=== PATIENT | male | born 1990 | race American Indian/Alaskan Native ===

== ENCOUNTER 2018-11-07 09:44 | Outpatient (CLI) | payer OTHER ==
--- NOTE | 2018-11-07 14:26 | Magnetic Resonance Report ---
MRI RIGHT SHOULDER WITHOUT CONTRAST INDICATION / CLINICAL INFORMATION: Right shoulder pain. TECHNIQUE: Multiplanar, multisequence MR images were obtained. COMPARISON: None available. FINDINGS: There is mild acromioclavicular degenerative change with very mild encroachment. No subdeltoid/subacr omial fluid is seen. There is abnormal concavity along the superior humeral head several punctate ossific densities adjace nt to it (coronal T1 image 9). There is moderate to advanced minimal degenerative change, evidenced b y osteophyte formation and advanced near full-thickness cartilage loss along both sides of the joint. There is marked hypoplasia/dysplasia of the glenoid. There is absence of the anterior half of the gle noid labrum. Posterior labrum appears intact. There is longitudinal split tear of the proximal long head biceps tendon. Mild biceps tenosynovitis i s noted. There is a joint effusion with debris in the subcoracoid bursa and within the joint space. There is high-grade articular surface tear through the distal supraspinatus tendon at the attachment to the greater tuberosity, a few superficial/bursal fibers remain intact (seen best on coronal T2 benitez ge 11). There is no significant bursitis tendon retraction and no atrophy. The rotator cuff is otherw ise unremarkable. IMPRESSION: 1. 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 Joint effusion is noted with synovitis. There are also small intra-articular bodies which may be chondral in etiology. 2. Large osteochondral lesion along the superior humeral head with fragmented osteochondral bodies in the adjacent joint space deep to the distal rotator cuff. 3. High-grade articular surface tear through the distal supraspinatus tendon at the attachment to the greater tuberosity (rim rent tear). 4. Longitudinal split tear of the proximal long head biceps tendon with associated tenosynovitis. MRI LEFT SHOULDER WITHOUT CONTRAST INDICATION / CLINICAL INFORMATION: Left shoulder pain. TECHNIQUE: Multiplanar, multisequence MR images were obtained. COMPARISON: None available. FINDINGS: There is no significant acromioclavicular degenerative change. The acromion is somewhat low-lying. Th ere is trace fluid in the subdeltoid/subacromial bursa. Similar to the contralateral right side, there is advanced glenohumeral osteoarthrosis. There is adva nced full-thickness near-complete cartilage loss along both sides of the joint. There is marked dysplasia/hypoplasia of the glenoid. There is a large irregular ossific density which measures 3.2 x 1.2 cm on axial image 10 in the anterior joint space with resorptive change along the underlying anterior humeral head. There is also concavity along the superior humeral head with minim al ossific densities adjacent to it. No rotator cuff tear is seen. There is no significant tendinosis. There is tendinosis of the intra-articular portion of the long head biceps tendon. There is a small joint effusion with extensive synovitis and debris in the joint. IMPRESSION: 1. There is no significant deformity of the humeral head areas of volume loss/concavity anteriorly an d superiorly. Bulky 3.2 cm ossific density in the anterior joint space appears to be an unstable oste ochondral fragment. This could conceivably be an osteophyte; however, I do not see bony continuity wi th the underlying humeral head. There is also a chronic osteochondral lesion along the superior humer al head with fragmented osteochondral bodies along the concavity. 2. Advanced glenohumeral osteoarthrosis with full-thickness near-complete cartilage loss. 3. Advanced glenoid dysplasia/hypoplasia. 4. No rotator cuff tear. 5. Joint effusion with synovitis and debris in the joint space. Signer Name: Sherif Sandoval MD Signed: 11/07/2018 2:21 PM Workstation Name: [id number]
== END 2018-11-07 09:45 | disposition home or self-care (01) ==
LOC: MRI 09:44
PROVIDERS: ATTEND Internal Medicine
DX: M19.012 Primary osteoarthritis, left shoulder (principal); M19.011 Primary osteoarthritis, right shoulder; M25.411 Effusion, right shoulder; M25.412 Effusion, left shoulder; M65.811 Other synovitis and tenosynovitis, right shoulder; M65.812 Other synovitis and tenosynovitis, left shoulder; M75.101 Unspecified rotator cuff tear or rupture of right shoulder, not specified as traumatic